=== PATIENT | female | born 1980 | race Caucasian/White ===

== ENCOUNTER 2025-01-28 23:12 | Emergency (ER) | payer OTHER, SELFPAY ==
[2025-01-28 23:20] VITALS: BP 157/105; PULSE 69; RESP 16; TEMP 36.4; O2SAT 94; BMI 40.2
--- NOTE | 2025-01-28 23:23 | DI.RAD.S_ITS ---
PROCEDURE: XR CHEST 1V INDICATIONS: Chest Pain, fall, etoh, left sided pain TECHNIQUE: One view of the chest was acquired. COMPARISON: None. FINDINGS: Surgical changes and devices: None. Lungs and pleura: Lungs are clear. No pleural effusions or pneumothorax. Mediastinum: Mediastinal contours appear normal. Heart size is normal. Bones and chest wall: No suspicious bony lesions. Overlying soft tissues appear unremarkable. IMPRESSION: No acute cardiopulmonary abnormality is seen. Dictated by: Arpan Palumbo M.D. on 01/28/2025 at 23:55 Approved by: Arpan Palumbo M.D. on 01/28/2025 at 23:56
--- NOTE | 2025-01-28 23:29 | EKG_ITS ---
[address] [id number] Test Date: 2025-01-28 Pat Name: Katt Vaughn Department: [facility] Room: Gender: Female Department Supervisor: CURTIS : 1980 Requested By: Order Number: [id number] Reading MD: Federico Terry Measurements Intervals [place] Rate: 73 P: 26 VT: 150 QRS: 22 QRSD: 76 T: 14 QT: 454 QTc: 500 Interpretive Statements Normal sinus rhythm Electronically Signed On 01-29-2025 16:24:29 PDT by Federico Terry
[2025-01-29 00:06] LABS: Add Manual Diff / Slide Review NO; Basophils Absolute Auto 200 /uL (0-100); Basophils Percent Auto 3.6 % (0-2); Eosinophils Absolute Auto 100 /uL (0-450); Eosinophils Percent Auto 2.2 % (2-4); Hematocrit 43.8 % (36-46); Hemoglobin 15.8 g/dL (12.0-16.0); Lymphocytes Absolute Auto 1900 /uL (1100-4500); Lymphocytes Percent Auto 31.1 % (25-40); Mean Corpuscular Volume 94.6 fL (80-100); Monocytes Absolute Auto 200 /uL (0-900); Neutrophils Absolute Auto 3600 /uL (1500-7000); Neutrophils Percent Auto 60.1 % (50-75); Platelet Count 305 X10^3/uL (150-400); Red Blood Cell Count 4.63 X10^6/uL (4.0-5.2); Red Cell Distribution Width 13.1 % (11.6-14.8)
[2025-01-29 00:17] LABS: Alanine Aminotransferase 71 IU/L (<35); Albumin 4.6 g/dL (3.5-5.0); Albumin Globulin Ratio 1.6 (1.0-2.8); Alkaline Phosphatase 98 U/L (38-126); Aspartate Aminotransferase 78 IU/L (14-36); BUN Creatinine Ratio 10.6 (6-22); Bilirubin Total 0.4 mg/dL (0.2-1.3); Blood Urea Nitrogen 5 mg/dL (7-17); Calcium 9.3 mg/dL (8.4-10.2); Carbon Dioxide 26 mmol/L (22-32); Chloride 93 mmol/L (98-107); Creatine Kinase 72 U/L (30-135); Estimated Glomerular Filt Rate > 60 mL/min (>60); Globulin 2.8 g/dL (1.7-4.1); Glucose 317 mg/dL (70-99); HEMOLYSIS < 15 (0-50); Lipase 100 U/L (23-300); Magnesium 1.6 mg/dL (1.6-2.3); Potassium 3.2 mmol/L (3.4-5.1); Sodium 136 mmol/L (137-145); Total Protein 7.4 g/dL (6.3-8.2)
[2025-01-29 00:17] LABS: Ethanol (ETOH) 181 mg/dL (<10)
[2025-01-29 00:28] LABS: NT-proBNP (BNP-Adult 18+) 208 pg/mL (<125); Troponin I < 0.012 ng/mL (0.01-0.034)
[2025-01-29 00:39] LABS: Prothrombin Time 11.1 SECONDS (9.4-12.5)
[2025-01-29 00:43] LABS: PTT Partial Thromboplastin Tim 31 SECONDS (25.1-36.5)
[2025-01-29 02:07] LABS: Troponin I < 0.012 ng/mL (0.01-0.034)
--- NOTE | 2025-01-29 02:16 | ED.GENADULT ---
HPI - General Adult General Chief complaint: Syncope Stated complaint: fall, etoh Time Seen by Provider: 01/29/25 00:02 Source: patient and EMS Mode of arrival: EMS Limitations: no limitations History of Present Illness HPI narrative: 44-year-old female history of hypertension, diabetes, dyslipidemia. Patient presents with complaint of passing out x2, states she did have alcohol this evening. Patient states has not had issues with passing out in the past. She denies any headache, no chest pain, no shortness of breath, no fevers, she was had some mild nausea and diarrhea persistently for several months. Has not had any vomiting. No black or bloody stools. Patient denies any new urinary symptoms. No new swelling of extremities. States he has been ignoring her health until recently. Just saw her primary care had EKG, started on a statin. Set up for follow up with the an ECHO for palpitations following Friday as well as referral to GI for her diarrhea. Patient's home medications include fluoxetine, losartan, lorazepam, propranolol, amlodipine and metformin and just recently started on a statin. States no prior surgeries. No known drug allergies. Occasional tobacco, does drink alcohol regularly, patient is vague about the amount. States she had more than normal tonight. States she was marijuana denies any other recreational drugs. Family history dad had coronary artery disease age 54. Related Data Allergies Allergy/AdvReac Type Severity Reaction Status Date / Time No Known Drug Allergies Allergy Verified 01/28/25 23:38 Review of Systems Review of Systems ROS Unobtainable: All systems reviewed & are unremarkable except as noted in HPI and below Patient History Social History Smoking Status: Current some day smoker Smoking Status: Current some day smoker Alcohol type: hard liquor Exam Narrative Exam Narrative: GENERAL: Alert and oriented x three, obese female in mild distress HEENT: Head normocephalic, atraumatic, EOMI, pupils reactive, face symmetric, moist mucous membranes NECK: Supple, full range of motion CARDIOVASCULAR: Regular rate and rhythm without murmurs, rubs or gallops. No edema bilateral lower extremities. No JVD. RESPIRATORY: Breath sounds equal bilaterally, no wheezes rales or rhonchi. No tachypnea or accessory muscle use. ABDOMEN: Soft, nontender. Normoactive bowel sounds all 4 quadrants. No guarding or rebound, rigidity, no mass : No CVA tenderness EXTREMITIES: Normal range of motion, no clubbing or edema. Neurovascularly intact NEUROLOGICAL: Cranial nerves II through XII grossly intact. Moving all extremities SKIN: Warm, dry, no petechiae, no rashes or lesions. Initial Vital Signs Initial Vital Signs: Vital Signs Temperature 97.5 F L 01/28/25 23:20 Pulse Rate 69 01/28/25 23:20 Respiratory Rate 16 01/28/25 23:20 Blood Pressure 157/105 H 01/28/25 23:20 Pulse Oximetry 94 01/28/25 23:20 Oxygen Delivery Method Room Air 01/28/25 23:20 Course Orders Ordered: Discontinued Medications Aspirin (Aspirin 81 Mg Chew Tab) 324 mg PO NOW ONE Stop: 01/28/25 23:24 Last Admin: 01/29/25 02:42 Dose: Not Given Documented By: DES Potassium Chloride (Potassium Chloride 20 Meq Tab) 40 meq PO NOW ONE Stop: 01/29/25 02:19 Last Admin: 01/29/25 02:42 Dose: 40 meq Documented By: DES Vital Signs Vital signs: Vital Signs - 8 hr 01/28/25 23:20 Temperature 97.5 F L Pulse Rate 69 Respiratory Rate 16 Blood Pressure 157/105 H Pulse Oximetry 94 Oxygen Delivery Method Room Air Medical Decision Making Lab Data 01/28/25 23:51 01/28/25 23:51 Labs: Lab Results 01/28/25 01/29/25 01/29/25 Range/Units 23:51 00:02 01:36 WBC 6.0 (4.5-11.0) X10^3/uL RBC 4.63 (4.0-5.2) X10^6/uL Hgb 15.8 (12.0-16.0) g/dL Hct 43.8 (36-46) % MCV 94.6 (80-100) fL MCH 34.0 (26-34) PG MCHC 36.0 (30-36) % RDW 13.1 (11.6-14.8) % Plt Count 305 (150-400) X10^3/uL Neut % (Auto) 60.1 (50-75) % Lymph % (Auto) 31.1 (25-40) % [place] % (Auto) 3.0 (3-14) % Eos % (Auto) 2.2 (2-4) % Baso % (Auto) 3.6 H (0-2) % Neut # (Auto) 3600 (7476-2630) /uL Lymph # (Auto) 1900 (7428-4339) /uL [place] # (Auto) 200 (0-900) /uL Eos # (Auto) 100 (0-450) /uL Baso # (Auto) 200 H (0-100) /uL PT 11.1 (9.4-12.5) SECONDS INR 1.0 (0.9-1.3) APTT 31 (25.1-36.5) SECONDS Sodium 136 L (137-145) mmol/L Potassium 3.2 L (3.4-5.1) mmol/L Chloride 93 L (98-107) mmol/L Carbon Dioxide 26 (22-32) mmol/L BUN 5 L (7-17) mg/dL Creatinine 0.47 L (0.52-1.04) mg/dL Estimated GFR > 60 (>60) mL/min BUN/Creatinine Ratio 10.6 (6-22) Glucose 317 H (70-99) mg/dL Calcium 9.3 (8.4-10.2) mg/dL Magnesium 1.6 (1.6-2.3) mg/dL Total Bilirubin 0.4 (0.2-1.3) mg/dL AST 78 H (14-36) IU/L ALT 71 H (<35) IU/L Alkaline Phosphatase 98 (38-126) U/L Total Creatine Kinase 72 (30-135) U/L Troponin I < 0.012 < 0.012 (0.01-0.034) ng/mL NT-Pro-B Natriuret Pep 208 H (<125) pg/mL Total Protein 7.4 (6.3-8.2) g/dL Albumin 4.6 (3.5-5.0) g/dL Globulin 2.8 (1.7-4.1) g/dL Albumin/Globulin Ratio 1.6 (1.0-2.8) Lipase 100 (23-300) U/L Ethyl Alcohol 181 H (<10) mg/dL ECG Data Attestation: I personally reviewed and interpreted this ECG as follows: Prior ECG tracings: not available for review Interpretation: Sinus rhythm rate of 73 GA 150 QRS is 76 QTC of 500, no acute ST elevation depression noted. No prior for comparison. MDM Narrative Medical decision making narrative: EKG sinus rhythm no acute changes, no priors for comparison. Labs show normal hemoglobin, white count and platelets, coags are negative, potassium 3.2 chloride 93 sodium is 136 CO2 is 26 BUN 5 creatinine of 0.47 glucose is 317, AST is 78 with a ALT is 71 bilirubin is 0.4 lipase is 100, troponins less than 0.012 with a repeat of less than 0.012 and a BNP of 208. ETOH is 181. Chest x-ray shows no acute cardiopulmonary abnormality seen. Oral potassium was replaced. Patient ambulated here in the department without any issues she states she was currently asymptomatic. Has what sounds like appropriate follow up this upcoming week. Discharge Plan Departure Patient Disposition: Home Clinical Impression: Syncope, Alcohol intoxication, Hypokalemia Instructions: DI for Syncope in Adults (Fainting) Activity Restrictions/Additional Instructions: Follow up with your physician for rechecked. Your potassium today was slightly low, share this information with your physician. Your potassium was 3.2 today. This can sometimes occur if individuals or having frequent diarrhea. Please return if you develop fevers, passing out, new chest pain, new shortness of breath, new swelling in your extremities, black or bloody stools, persistent vomiting or other new or concerning changes. Stand Alone Forms: Patient Portal/API/Survey
[2025-01-29] MEDS: POTASSIUM CHLORIDE 20 MEQ TAB 40 MEQ PO (02:42)
--- NOTE | 2025-01-29 02:43 | PC.NURSE ---
Pt aambulated in hallway with steady gait
[2025-01-29 02:53] VITALS: BP 175/103; PULSE 75; RESP 20; O2SAT 97
== END 2025-01-29 03:05 | disposition home or self-care (01) ==
PROVIDERS: Emergency Provider Emergency Medicine
DX: R55 Syncope and collapse (principal); F10.129 Alcohol abuse with intoxication, unspecified; Y90.6 Blood alcohol level of 120-199 mg/100 ml; E87.6 Hypokalemia
CPT/HCPCS: 36415; 71045; 80053; 80320; 82550; 83690; 83735; 83880; 84484; 85025; 85610; 85730; 93005; 99284

== ENCOUNTER 2025-07-04 19:08 | Emergency (ER) | payer OTHER, SELFPAY ==
[2025-07-04 19:10] VITALS: PULSE 87; O2SAT 97
[2025-07-04 19:11] VITALS: BP 225/117; PULSE 89; O2SAT 97
[2025-07-04 19:17] VITALS: BP 225/117; PULSE 99; RESP 18; TEMP 37.1; O2SAT 97; BMI 40.2
[2025-07-04 19:30] VITALS: PULSE 88; O2SAT 94
[2025-07-04 19:31] VITALS: BP 159/81; PULSE 86; O2SAT 96
[2025-07-04 20:00] VITALS: BP 158/90; PULSE 84; O2SAT 95
--- NOTE | 2025-07-04 20:24 | ED_ITS ---
HPI - General Adult General Chief complaint: Hypertension Stated complaint: HTN/Elevated BP Time Seen by Provider: 07/04/25 20:02 Source: patient and EMS Mode of arrival: EMS Related Data Previous Rx's ?Medication ?Instructions ?Recorded fluconazole 150 mg tablet 150 mg PO DAILY 1 dose #1 ta b 04/22/25 Allergies Allergy/AdvReac Type Severity Reaction Status Date / Time No Known Drug Allergies Allergy Verified 07/04/25 19:17 Patient History Alcohol type: beer and hard liquor Exam Initial Vital Signs Initial Vital Signs: Vital Signs Pulse Rate 87 07/04/25 19:10 Pulse Oximetry 97 07/04/25 19:10 Course Vital Signs Vital signs: Vital Signs - 8 hr 07/04/25 19:10 07/04/25 19:11 07/04/25 19:11 Temperature Pulse Rate 87 89 Respiratory Rate Blood Pressure 225/117 H Pulse Oximetry 97 97 Oxygen Delivery Method 07/04/25 19:17 07/04/25 19:30 07/04/25 19:31 Temperature 98.7 F Pulse Rate 99 H 88 86 Respiratory Rate 18 Blood Pressure 225/117 H Pulse Oximetry 97 94 96 Oxygen Delivery Method Room Air 07/04/25 19:31 07/04/25 20:00 07/04/25 20:00 Temperature Pulse Rate 84 Respiratory Rate Blood Pressure 159/81 H 158/90 H Pulse Oximetry 95 Oxygen Delivery Method Medical Decision Making Lab Data Labs: Lab Results 07/04/25 Range/Units 19:23 POC Whole Bld Glucose 341 H (70-99) mg/dL Point of Care Testing Glucose POC 341 Point of care testing: Point of Care Testing Glucose POC 341 Discharge Plan Departure Patient Disposition: Left Without Being Seen Clinical Impression: Patient left without being seen Prescriptions: No Action fluconazole 150 mg tablet 150 mg PO DAILY Qty: 1 0RF Rx Instructions: Take after completion of antibiotics if needed for vaginal yeast infection
== END 2025-07-04 20:28 | disposition left against medical advice (07) ==
PROVIDERS: Emergency Provider Family Medicine
DX: E11.65 Type 2 diabetes mellitus with hyperglycemia (principal)
CPT/HCPCS: 82962; 99281